=== PATIENT | male | born 1965 | race Two or more races ===

== ENCOUNTER 2022-05-23 20:08 | Emergency (ER) | payer MEDICAID ==
[~2022-05-23] VITALS: Ht 165.1 cm; Wt 97.0 kg
[2022-05-23 20:33] VITALS: BP 124/99
[2022-05-23 21:21] LABS: BUN/Creatinine Ratio 19.8; Calcium 8.1 mg/dL (8.5-10.1); Potassium 3.7 mmol/L (3.5-5.1)
[2022-05-23] MEDS ORDERED: GLYB5TAB8 PO (21:45)
[2022-05-23] MEDS ORDERED: METF-929 PO (21:45)
== END 2022-05-23 21:46 | disposition home or self-care (01) ==
LOC: ER 20:08
DX: E11.65 Type 2 diabetes mellitus with hyperglycemia (principal); Z91.199 Patient's noncompliance with other medical treatment and regimen due to unspecified reason
CPT/HCPCS: 36415; 80048; 82962